=== PATIENT | male | born 1980 | race Caucasian/White ===

== ENCOUNTER 2017-05-18 15:44 | Emergency (ER) | payer MEDICAID ==
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
[2017-05-18 17:24] LABS: % BASOPHILS 0.3 % (0.0-2.0); % EOSINOPHILS 0.5 % (0.0-5.0); % MONOCYTES 9.6 % (2.0-10.0); % NEUTROPHILS 67.6 % (40.0-80.0); HEMATOCRIT 43.8 % (41.0-60); HEMOGLOBIN 14.9 gm/dL (12-16); LYMPHOCYTE ABSOLUTE 1.4 Th/cmm (1.5-3.0); MEAN CELL VOLUME 82.6 fl (80-99); MEAN CORPUSCULAR HGB CONC 33.9 pg (28.0-36.0); MEAN PLATELET VOLUME 8.4 fl; MONOCYTE ABSOLUTE 0.6 Th/cmm (0.3-1.0); NEUTROPHILE ABSOLUTE 4.2 Th/cmm (1.8-8.0); PLATELET COUNT 272 Th/cmm (150-400); WHITE BLOOD COUNT 6.2 Th/cmm (4.8-10.8)
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
== END 2017-05-18 19:30 | disposition home or self-care (01) ==
LOC: ER 15:44
DX: S52.125A Nondisplaced fracture of head of left radius, initial encounter for closed fracture (principal); S80.02XA Contusion of left knee, initial encounter; X58.XXXA Exposure to other specified factors, initial encounter; Y93.9 Activity, unspecified; Y92.89 Other specified places as the place of occurrence of the external cause; Y99.8 Other external cause status; M61.422 Other calcification of muscle, left upper arm
CPT/HCPCS: 36415-UA; 71045-TC; 72125-TC; 72128-TC; 72131-TC; 73080-TC-LT; 73110-TC-LT; 73130-TC-LT; 73562-TC-LT; 85025-TC